=== PATIENT | female | born 1965 | race Caucasian/White ===

== ENCOUNTER 2025-02-26 11:25 | Day surgery (SDC) | payer MEDICARE, OTHER ==
[~2025-02-26] VITALS: Ht 167.6 cm; Wt 69.0 kg
[~2025-02-26 11:25] MED LIST: CEFDINIR300 MG PO; CEPHALEXIN500 MG PO; COUMADIN4 MG PO; ELIQUIS5 MG PO; HYDROmorphone HCL 1 MG/ML SYR IV PRN; HYOSCYAMINE SULFATE 0.375 MG TAB.ER.12H PO PRN; IBLOOD GLUCOSE TEST STRIP 1 EA TEST VI PRN; LACTATED RINGER'S 1,000 ML IV SCH; LIDOCAINE HCL 1% 5 ML SDV INJ ONE; MAPAP500 M1 PO; MORPHINE SULFATE 15 MG TABCR PO PRN; ONDANSETRON HCL4 MG PO; OXYBUTYNIN CHLOR5 MG PO; OXYCODONE HCL5 MG PO; OXYCODONE/APAP 5/325 TAB PO PRN; SENNA-DOCUSATE1 EAC1 PO; SEVOFLURANE 250 ML BTL INH ONE; TAMSULOSIN HCL0.4 MG PO; TRAMADOL HCL50 MG PO; mitoMYcin 40 MG/20 ML VIAL BLADIN SCH
[2025-02-26 11:40] VITALS: BP 115/79
[2025-02-26] MEDS ORDERED: CIPROFLOXACIN500 MG PO (11:44)
[2025-02-26] MEDS ORDERED: ASHWAGANDHA300 MG PO (11:49)
[2025-02-26] MEDS ORDERED: [UNRECOGNIZED DRUG - OTHER] PO (11:49)
[2025-02-26] MEDS ORDERED: MILK THISTLE175 M3 PO (11:50)
[2025-02-26] MEDS ORDERED: DEXAMETHASONE SOD PHOS 4 MG/ML VIAL ONE ×2 (12:57→20:57)
[2025-02-26] MEDS ORDERED: fentaNYL citrate 100 MCG/2 ML VIAL ONE ×3 (12:57→20:36)
[2025-02-26] MEDS ORDERED: ROCURONIUM BROMIDE 50 MG/5 ML SYR ONE ×2 (12:57→20:36)
[2025-02-26] MEDS ORDERED: LIDOCAINE HCL 2% 5 ML SDV ONE ×3 (12:57→20:36)
[2025-02-26] MEDS ORDERED: MAGNESIUM SULFATE 1 GM/2 ML VIAL ONE (13:24)
[2025-02-26] MEDS ORDERED: ACETAMINOPHEN 1,000 MG/100 ML VIAL ONE ×2 (13:24→21:03)
[2025-02-26] MEDS ORDERED: LABETALOL HCL 20 MG/4 ML VIAL ONE (13:43)
[2025-02-26] MEDS ORDERED: TRANEXAMIC ACID 1,000 MG/10 ML AMP ONE (15:19)
[2025-02-26] MEDS ORDERED: SUGAMMADEX SODIUM 200 MG/2 ML ML ONE (15:26)
[2025-02-26] MEDS ORDERED: NALOXONE HCL 0.4 MG SYR IV PRN ×2 (16:00→22:00)
[2025-02-26] MEDS ORDERED: IBLOOD GLUCOSE TEST STRIP 1 EA TEST VI PRN ×2 (16:00→22:00)
[2025-02-26] MEDS ORDERED: fentaNYL citrate 50 MCG/ML SDV IV PRN ×2 (16:00→22:00)
[2025-02-26 16:02] LABS: MCH 29.6 PG (25.6-32.2); MCHC 31.6 g/dL (32.2-35.5); MCV 93.7 fL (79.4-94.8); RBC 3.98 M/uL (3.93-5.22)
[2025-02-26] MEDS ORDERED: LACTATED RINGER'S 1,000 ML IV SCH (16:15)
--- NOTE | 2025-02-26 16:16 | NUR ---
02/26/25 1616 Ines Oconnor 1550- PT PRESENTS TO PACU, SEMI BOYER POSITION, NON REACTIVE TO STIMULUS. BREATHING EVEN AND NON LABORED, O2 AT 6L PER MASK. LR INFUSING TO RAC IV. CBI RUNNING AT THIS TIME, DRAINAGE BAG EMPTIED AND BAGS MARKED, RED COLOR IN BAG. 1555- PT MOVING EXTREMITIES BUT NOT RESPONSIVE TO VERBAL OR TACTILE STIMULUS. BLOOD DRAWN FROM RAC IV FOR HEMOGRAM. 1603- PT WAKES, REORIENTED TO TIME AND PLACE. MOVED TO ROOM AIR. 1607- NO PAIN OR NAUSEA, PT DOING PURSED LIP BREATHING. DENIES SOB.
[2025-02-26] MEDS ORDERED: fentaNYL citrate 50 MCG/ML SDV ONE (16:19)
--- NOTE | 2025-02-26 17:20 | NUR ---
Pt arrived to the room transferred here by INTERNATIONAL PROJECT MANAGER Leah at about 1708 hrs. Pt is A&O but drowsy. Family member in room. Pt is practicing deep breathing at this time. VSS. CBI running at a slow rate, urine is clear to light pink in color.
[2025-02-26 17:22] VITALS: BP 121/67
[2025-02-26 18:18] VITALS: BP 130/67
[2025-02-26 18:22] VITALS: BP 130/67
--- NOTE | 2025-02-26 18:26 | NUR ---
THIS RN REVIEWED CT RESULTS. VM LEFT FOR DR. ARRINGTON TO SEE IF SHE REVIEWED CT AND IF SHE HAD CONCERNS.
--- NOTE | 2025-02-26 18:35 | NUR ---
MD CALLED REGARDING CT RESULTS BY THIS RN. VM WAS LEFT NO ANSWER. MD CALLED BACK, WAS HAVING DISCUSSION WITH DR. PIERCE SO MISSED CALL. AT THIS TIME, DR. PIERCE WILL BE CONSULTING ON PATIENT THIS EVENING. CBI TO BE CLAMPED. CURRENTLY LIGHT PINK OUTPUT, KULKARNI DRAINED WITH 375ML OUTPUT, THE CBI BAG HAD 300ML OUT SINCE ARRIVING TO FLOOR. PT PAIN CURRENTLY 4/10, ABOMDEN DOES NOT APPEAR GROSSLY DISTENDED/NOR FIRM. PT MADE NPO STATUS AT THIS TIME. ALL PT CARE NEEDS MET, PRIMARY RN NOTIFIED.
--- NOTE | 2025-02-26 19:12 | NUR ---
Notified by BAKARI Herring, that the most recent CT scan of this pt reports a possible bladder perforation. She advised that she will contact Dr. Sanchez.
[2025-02-26 19:23] VITALS: BP 116/61
--- NOTE | 2025-02-26 19:40 | NUR ---
DR. PIERCE AT BEDSIDE WITH PATIENT.
--- NOTE | 2025-02-26 19:55 | NUR ---
PATIENT RESTING IN BED, SURGERY CONSENT SIGNED BY PATIENT, WITNESSED BY THIS RN. IVF CONTINUING TO INFUSE PER ORDER. RESPIRATIONS EVEN AND UNLABORED. PATIENT IS NPO.
[2025-02-26] MEDS ORDERED: TRANEXAMIC ACID 650 MG TABLET PO SCH (21:00)
[2025-02-26] MEDS ORDERED: PHENYLEPHRINE HCL IN 0.9% NACL 1 MG/10 ML SYR ONE (21:36)
--- NOTE | 2025-02-26 21:45 | NUR ---
CALL RECEIVED FROM MERARI IN LAB- PER MERARI, FINAL GRAM STAIN RESULTS W/ FEW WBC'S, NO ORGANISM SEEN. PRIMARY RN GLADIS MADE AWARE.
[2025-02-26] MEDS ORDERED: HYDROmorphone HCL 1 MG/ML SYR IV PRN (22:00)
[2025-02-26] MEDS ORDERED: Ropivacaine HCl 0.5% 30 ML VIAL ONE (22:48)
[2025-02-26] MEDS ORDERED: TRANEXAMIC ACID IN NACL,ISO-OS 1,000 MG/100 ML PIGGYBACK IV ONE (23:45)
--- NOTE | 2025-02-26 23:47 | NUR ---
02/26/25 2347 Liliana Mai 2314- PT ARRIVES TO PACU. ORAL AIRWAY IN PLACE. BREATHING IS EVEN AND UNLABORED. 6L OF O2 VIA MASK. SURGICAL SITE SHOWS A SMALL AMOUNT OF SHADOWING. LR INFUSING. URINE DRAINING IN THE KULKARNI. PT IS NONREACTIVE TO VARBAL AND TACTILE STIMULI. PT SHOWS NO APPARENT SIGNS OF DISTRESS. 2330-PT BEGINS SWALLOWING AND HER RIGHT ARM IS LIFTED OFF THE BED. PT IS REACTIVE TO VERBAL STIMULI BUT IS UNABLE TO FOLLOW DIRECTIONS. ORAL AIRWAY REMAINS IN PLACE. 2336- PT IS ABLE TO FOLLOW DIRECTIONS TO OPEN HER MOUTH. ORAL AIRWAY REMOVED AT THIS TIME. SATS REMAIN IN THE HIGH 90S. PT SHOWS SOME FACIAL GRIMACING. 2342- WHEN ASKED ABOUT PAIN PT REPORTS "A LITTLE" AND POINTS THE THE BOTTOM OF HER MIDLINE INCISION. PT ALSO REPORTS "A LITTLE" WHEN ASKED ABOUT NAUSEA. PT TURNS HER HEAD TO THE LEFT AND EASILY FALLS BACK TO SLEEP.
[2025-02-27] VITALS (15 sets, daily range): BP systolic 98–119; BP diastolic 51–72
--- NOTE | 2025-02-27 00:10 | NUR ---
PATIENT RECEIVED FROM PACU, REPORT RECEIVED FROM BAKARI VINES. VS OBTAINED, RECORDED. KULKARNI CATH IN PLACE, CHELY DRAIN IN PLACE. DRESSING C/D/I. SMALL DOT OF DRAINAGE PRESENT ON DRESSING. PATIENT REPORTS 6/10 PAIN THAT IS TOLERABLE AND IS DESCRIBED CRAMPING. PATIENT DAUGHTER IN THE ROOM. SHE IS ALERT AND ORIENTED X4, LAYING WITH EYES CLOSED, BUT SHE STATES SHE IS JUST TRYING TO RELAX. SHE FOLLOWS ALL COMMANDS. SHE DENIES FURTHER NEEDS, CALL LIGHT IN REACH
--- NOTE | 2025-02-27 00:58 | NUR ---
SCHEDULED MEDICATION GIVEN TO PATIENT ORDERED. PATIENT RESTING WITH EYES CLOSED BUT RESPONDS TO VERBAL CUES. SHE DENIES ANY NEEDS, DAUGHTER IN ROOM. CALL LIGHT IN REACH
--- NOTE | 2025-02-27 01:37 | NUR ---
PRN PAIN MEDICATION AND NAUSEA MEDICATION GIVEN PER REQUEST. PATIENT SETTLED IN BED, RESPIRATIONS EVEN AND UNLABORED. NO FURTHER NEEDS AT THIS TIME, CALL LIGHT IN REACH
--- NOTE | 2025-02-27 02:11 | NUR ---
PATIENT RESTING, RESPIRATIONS EVEN AND UNLABORED. VS OBTAINED AND RECORDED. SHE REPORTS THAT HER NAUSEA AND PAIN HAS IMPROVED AND SHE APPEARS MORE COMFORTABLE. NO FURTHER NEEDS, CALL LIGHT IN REACH
--- NOTE | 2025-02-27 02:29 | NUR ---
CONFIRMED WITH GALE IN IMAGING, ORDERED ABD X-RAY COMPLETED IN PACU. UNABLE TO SEE RESULTS ORDER PUT IN ROUTINE, PER GALE HE WILL TRY AND GET AN EARLIER READ ON IMAGING RESULTS. PRIMARY RN GLADIS UPDATED AND AWARE.
--- NOTE | 2025-02-27 03:12 | NUR ---
PATIENT RESTING WITH EYES CLOSED, RESPIRATIONS EVEN AND UNLABORED. VS OBTAINED AND RECORDED. NO NEEDS IDENTIFIED, CALL LIGHT IN REACH
[2025-02-27 05:39] LABS: GLOMERULAR FILTRATION RATE,EST 46.0 mL/min (>60); UREA NITROGEN 12.0 mg/dL (7-18)
[2025-02-27 05:42] LABS: BASOPHILS 0.1 % (0.1-1.2); EOSINOPHILS 0 % (0.7-5.8); LYMPHOCYTES 2.7 % (19.3-51.7); MCH 30.1 PG (25.6-32.2); MCHC 32.4 g/dL (32.2-35.5); MCV 93.0 fL (79.4-94.8); MONOCYTES 3.9 % (4.7-12.5); NEUTROPHILS 92.8 % (34.0-71.1); RBC 3.72 M/uL (3.93-5.22)
[2025-02-27] MEDS ORDERED: MEROPENEM 1,000 MG in DEXTROSE 5% 100 ML IV SCH (06:00)
--- NOTE | 2025-02-27 06:21 | NUR ---
PATIENT RESTING IN BED, ABD ASSESSED. NO NEW DRAINAGE ON ABD DRESSING. RESPIRATIONS EVEN AND UNLABORED. DENIES NAUSEA. SCHEDULED MEDICATION GIVEN PER ORDER. PATIENT DENIES ANY FURTHER NEEDS.
--- NOTE | 2025-02-27 07:06 | NUR ---
Pt report received from BAKARI Barnett and BAKARI Flor. Pt is resting supine in bed, eyes closed but awake, breathing is regular, even and non-labored. Side rails up x4, call light in reach. White board updated. Pt denies any needs at this time. Pt's daughter is asleep on the couch.
--- NOTE | 2025-02-27 08:17 | NUR ---
INTO SEE PATIENT. PERSONAL HEALTH INFORMATION REVIEWED. PATIENT LIVES ALONE IN [place] A HOUSE. 3 STEPS INTO THE HOME. DENIES DIFFCULTY PRIOR TO SURGERY DOING THEM. DENIES USING ANY DME. PATIENT DAUGHTER TO TAKE HER HOME AT TIME OF DISCHARGE HAVE HER STAY TO RECOVER. PATIENT DOES DRIVE AND HAS ANOTHER DAUGHTER THAT LIVES CLOSE TO HER. DENIES ANY DIFFCULTY DOING UTLITIES OR OBTAINING FOOD. NO QUESTIONS OR FUTHER CM NEEDS AT THIS TIME.
[2025-02-27] MEDS ORDERED: OXYBUTYNIN CHLOR5 M1 PO (08:21)
--- NOTE | 2025-02-27 08:59 | NUR ---
MED REC COMPLETE
--- NOTE | 2025-02-27 09:37 | NUR ---
SPOKE WITH DR. ARRINGTON TO CLARIFY ADMISSION ORDERS. VORB DR. ARRINGTON/Niko VALDIVIA RN TO KEEP PATIENT EXTENDED RECOVERY AT THIS TIME. ORDER UPDATED.
[2025-02-27] MEDS ORDERED: LACTATED RINGER'S 1,000 ML IV SCH (10:30)
[2025-02-27] MEDS ORDERED: ENOXAPARIN SODIUM 30 MG/0.3 ML SYR SUB-Q SCH (10:31)
--- NOTE | 2025-02-27 10:43 | NUR ---
PATIENT IN BED AT THIS TIME. PROTECTION MANAGER CHARTED VITALS AND I&O'S. CALL LIGHT WITHIN REACH, NO FURTHER NEEDS AT THIS TIME.
--- NOTE | 2025-02-27 11:22 | NUR ---
PT NOT AVAILABLE FOR VISIT. PROVIDED PRAYER.
--- NOTE | 2025-02-27 11:30 | NUR ---
UR CLINICAL REVIEW: 2MN VERSALUS, MEETS EXTENDED RECOVERY TURBT AND STENT PLACEMENT, BLADDER PERFORATION, NEED FOR CONTINUED MONITORING. KULKARNI IN PLACE ADVANCING DIET, IV ANTIBIOTICS, IV ANALGESICS MEDICARE EXTENDED RECOVERY 02/26/2025 @ 0744 ORDER MATCHES REG NO AUTH REQUIRED PER MEDICARE RULES PLAN TO DC TO HOME WHEN MEDICALLY READY.
--- NOTE | 2025-02-27 11:39 | NUR ---
In with pt for med administration per emar. Pt rates her pain a 5 out of 10 until she got up to the chair, which increased her pain. She now rates it a 7 or 8 out of 10 in her "bladder". SBA as pt slowly transferred herself with minimal contact assist from bed to chair, BLE elevated, warm blanket provided. CPOX on, call light in reach, IVF running at newly ordered rate of 100ml/hr. Pt transferred without any incidents or events.
--- NOTE | 2025-02-27 14:41 | NUR ---
PATIENT IS IN HER CHAIR AT THIS TIME, CRIB TENDER CHARTED VITALS AND I&O'S, EMPTIED CATH BAG, CHECK CHELY DRAIN, CHANGED LINENS, GOT VITALS AND I&O'S, CALL LIGHT WITH IN REACH AND NOTHING ELSE NEEDED AT THIS TIME.
--- NOTE | 2025-02-27 15:08 | NUR ---
In with pt for hourly rounding. Pt is resting in chair, reclined, BLE elevated, IVF running. Her eyes are closed, breathing is regular, even, and non-labored. Call light is in reach.
--- NOTE | 2025-02-27 16:21 | NUR ---
Pt has been up in the chair, reclined, since before lunch. Aides Peyton and Rachel are in with pt, now, to have her attempt to ambulate about the room. The pt reports quite a bit of pain with any movement at all, but she breathes deeply through it and is not unwilling to try.
--- NOTE | 2025-02-27 18:26 | NUR ---
PATIENT WAS IN HER CHAIR AT THIS TIME, CAMILA TERRY AND SACHIN ASSISTED PATIENT WITH A SMALL WALK AROUND THE ROOM WITH A FWW, WE GOT HER BACK TO BED. NOTHING ELSE NEEDED AT THIS TIME, CALL LIGHT WITH IN REACH.
--- NOTE | 2025-02-27 20:28 | NUR ---
Pt in bed, knees drawn up to chest. c/o abd/bladder spasms pain, medicated with Dilaudid 0.5mg IV. on room air, post op CPOX at bedside. f/c in place draining orange dark yellow urine. Armando tube patent. scds in place. Visiting with family.
--- NOTE | 2025-02-27 20:53 | NUR ---
ROTARY RIG ENGINE OPERATOR ASSISTED PT WITH WALKING IN HALLWAY. PT APPEARED TO BE STEADY AND SELF AWAY ABOUT HER PACE AND BREATHING. PT WENT FROM 116 TO THE AROUND THE FIRST CORNER NEAR CCU AND BACK TO BED. PT STATED THAT SHE FELT LIKE SHE WAS DOING MUCH BETTER THAN THE LAST ATTEMPT.
[2025-02-28] VITALS (13 sets, daily range): BP systolic 97–106; BP diastolic 49–60
--- NOTE | 2025-02-28 00:05 | NUR ---
RESTING, AWAKES EASILY. C/O BLADDER PAIN, WILL MEDICATE. F/C PATENT. IVF INFUSING W/O PROBLEMS, LAINE TUBE PATENT DRAINING SS DRAINAGE. SCDS IN PLACE
--- NOTE | 2025-02-28 02:04 | NUR ---
awake, ivf and abx infusing w/o problems. on room air, post op cpox on at bedside, cooperative with vitals and assessment. dressing low midline abd with old drainage, and tender. f/c patent draining orange dark yellow urine. scds in place. c/o abd pain/bladder spasms, medicated with norco 1 tab. Repositions crackers given earlier, tolerated well, diet will be updated to regular for breakfast. no c/o n/v, has tolerated very wellself in bed.
--- NOTE | 2025-02-28 03:32 | NUR ---
resting, eyes closed, no s/sx distress, on room air, post op CPOX in place, f/c patent, IVF infusing w/o problems
[2025-02-28 05:44] LABS: BASOPHILS 0.2 % (0.1-1.2); EOSINOPHILS 0.4 % (0.7-5.8); LYMPHOCYTES 11.9 % (19.3-51.7); MCH 30.2 PG (25.6-32.2); MCHC 32.1 g/dL (32.2-35.5); MCV 94.1 fL (79.4-94.8); MONOCYTES 5.7 % (4.7-12.5); NEUTROPHILS 81.3 % (34.0-71.1); RBC 3.24 M/uL (3.93-5.22)
--- NOTE | 2025-02-28 05:46 | NUR ---
MONOLOGIST OBTAINED VITALS AND I&O. PT STATES NO NEEDS AT THIS TIME. CALL LIGHT WITHIN REACH.
[2025-02-28 05:54] LABS: GLOMERULAR FILTRATION RATE,EST 60.0 mL/min (>60); UREA NITROGEN 14.0 mg/dL (7-18)
--- NOTE | 2025-02-28 06:07 | NUR ---
Awake, c/o abd bladder spasms/pain, medicated with Dilaudid 0.5mg IV. on room air, cpox on at bedside, shital tube with ss drainage. f/c urine medium yellow colored. abd dressing no changes abd tender. IVF infusing w/o problems
--- NOTE | 2025-02-28 06:59 | NUR ---
Pt report received from BAKARI Payton. Pt is resting supine in bed, eyes closed, breathing is regular, even, and non-labored. Side rails up x4, call light in reach.
[2025-02-28] MEDS ORDERED: ENOXAPARIN SODIUM 40 MG/0.4 ML SYR SUB-Q SCH (09:00)
--- NOTE | 2025-02-28 11:05 | NUR ---
Dr. Sanchez in to see pt. Pt requested prune juice in lieu of a stool softener because, she states, this works better. This was provided to her. Pt was also provided with a 60g consistent carb and vegetarian menu to make food choices from. Dr. Sanchez advised her that her diet is not limited; however, the pt would like to make choices without carbs and sugar as her own personal preference. Requested Aid Mariza ramires pt to ambulate the hallway shortly.
--- NOTE | 2025-02-28 12:00 | NUR ---
PATIENT AND I WALKED TWO LAPS AROUND MED SURG. PATIENT SITTING UP IN HER CHAIR EATING SOME LUNCH.
--- NOTE | 2025-02-28 12:15 | NUR ---
Pt is up ambulating the hallway using fww with aide Rachel. Pt is tolerating ambulation well.
--- NOTE | 2025-02-28 15:49 | NUR ---
Patient sitting up in chair, alert and oriented x3. Patient reports 7/10 bladder pain. Admin one tab percocet 5/325mg po at this time.
--- NOTE | 2025-02-28 20:54 | NUR ---
Pt awake, no c/o pain or n/v at this time. On room air, CPOX on at bedside, sats 97%. Cooperative with vitals and assessments. Lungs clear bilat, no c/o cough or SOB. Abd soft, RAÚL, no bm since prior to admit, declines need for bowel care at this time but stated that if her Dr agrees she will take them. Will notify Dr Sanchez in am. R low abd dressing with a very scant amount of drainage at base. intact. tender abd. Armando tube with small amount of ss drainage. dressing with small amount of drainage at insertion site. F/c patent draining large amounts of medium colored urine. care done, cooperative. IVF infusing R arm, Denies need for pain meds at this time, tolerating diet well.
--- NOTE | 2025-02-28 22:12 | NUR ---
Awake, c/o 9/10 bladder spasms pain, medicated with 1 norco. IVF and abx infusing w/o problems. shital tube, f/c patent.
--- NOTE | 2025-02-28 23:19 | NUR ---
RESTING, ON ROOM AIR, CPOX IN PLACE. F/C PATENT, IVF INFUSING W/O PROBLEMS NO S/SX DISTRESS AT THIS TIME, SCDS IN PLACE, LE ELEVATED
--- NOTE | 2025-03-01 00:56 | NUR ---
RESTING, ON ROOM AIR, EYES CLOSED, CPOX ON AT BEDSIDE, F/C PATENT, IVF INFUSING W/O PROBLEMS
--- NOTE | 2025-03-01 03:10 | NUR ---
resting, eyes closed, on room air, CPOX on at bedside, f/c patent, IVF infusing w/o problems, SCDs in place, repositions self in bed
[2025-03-01 05:22] VITALS: BP 107/62
[2025-03-01 05:26] LABS: BASOPHILS 0.4 % (0.1-1.2); EOSINOPHILS 1.6 % (0.7-5.8); LYMPHOCYTES 17.7 % (19.3-51.7); MCH 30.3 PG (25.6-32.2); MCHC 31.9 g/dL (32.2-35.5); MCV 95.0 fL (79.4-94.8); MONOCYTES 6.6 % (4.7-12.5); NEUTROPHILS 73.3 % (34.0-71.1); RBC 3.63 M/uL (3.93-5.22)
--- NOTE | 2025-03-01 05:29 | NUR ---
PATIENT USED CALL LIGHT AND CAMILA MEZA RESPONDED. PATIENT THOUGHT SHE NEEDED TO USE BATHROOM SO I GOT HER TO THE TOILET. SHE WANTED TO SIT AND WAIT SO I CAME BACK TO CHECK ON HER AFTER A FEW MINUTES. PATIENT WAS UNSUCCESSFUL IN ANY FORM OF BM. PATIENT WAS PUT BACK IN TO BED. URINARY DRAINAGE BAG WAS EMPTIED AND VITAL SIGNS WERE TAKEN. PATIENT COMPLAINS OF PAIN, CAMILA MEZA IS GOING TO INFORM RN DORINDA. CALL LIGHT WITHIN REACH.
[2025-03-01 05:39] LABS: GLOMERULAR FILTRATION RATE,EST 60.0 mL/min (>60); UREA NITROGEN 15.0 mg/dL (7-18)
[2025-03-01 05:50] VITALS: BP 107/62
--- NOTE | 2025-03-01 06:02 | NUR ---
Walked to BRp earlier, voided, tolerated well, back to bed. c/o abd bladder spasms, medicated with Nerinx 1 tab. On room air. abd dressing no changes. Armando tube with ss drainage. scds in place. IVF infusing w/o problems. CPOX on at bedside, sats WNL
--- NOTE | 2025-03-01 07:10 | NUR ---
Pt report received from BAKARI Payton. Pt is resting supine in bed, A&O, denies any needs at this time. Assessment completed. White board updated. Side rails up, personal belongings, call light, and bedside table in reach. IVF running at ordered rates.
[2025-03-01 09:51] VITALS: BP 95/53
--- NOTE | 2025-03-01 09:55 | NUR ---
pt just had rn in room, rn got pt fresh ice water and heat pack. THIS ENVIRONMENTAL ISSUES INSTRUCTOR CLEANED UP ROOM, EMPTIED TRASH AND EMPTIED KULKARNI. CALL LIGHT WITHIN REACH OF PT. ONE VISITOR IN ROOM. PT REPORTED NEEDING NOTHING MORE AT THIS TIME.
[2025-03-01] MEDS ORDERED: OXYCODONE/APAP 5/325 TAB PO PRN (11:30)
[2025-03-01] MEDS ORDERED: HYDROmorphone HCL 1 MG/ML SYR IV PRN (11:30)
--- NOTE | 2025-03-01 13:00 | NUR ---
Pt is up ambulating the hallway with Aidscarlett Hernandez (3 laps). She tolerated it well.
--- NOTE | 2025-03-01 14:11 | NUR ---
PT AMBULATED THREE LAPS AROUND THE MED SURGE FLOOR. LINEN CHANGE. GOT PT FRESH ICE WATER AND THREE WARM BLANKETS TO WRAP AROUND HER IN THE CHAIR. CALL LIGHT WITHIN REACH, AND VISITOR IN THE ROOM.
--- NOTE | 2025-03-01 17:23 | NUR ---
PT AMBULATED TWO LAPS AROUND MED SURG FLOOR, THEN THIS PERSONAL COMPANION GAVE PT BED BATH. GOT PT WARM PACK AND TWO WARM BLANKETS TO FOLLOW BED BATH. PT HAS FRESH ICE WATER AND IS FINISHING TEA FROM DINNER. REPORTED A PAIN LLEVEL OF 7-8 TO RN. CALL LIGHT WITHIN REACH.
--- NOTE | 2025-03-01 18:30 | NUR ---
While in with pt for pain med administration for 8 out of 10 pain, I noted that the documentation of omer output on the board was 100ml. This was a significant change from 1050 1000 hours and 1000 around 1400 hours. Reassessed the pt's abdomen (I had just changed the Armando drain dressing at the pt's request) and noted tenderness to the lower pelvic area. Flushed the omer tubing (after cleansing the port with alcohol and kinking the tubing) and immediately obtained urine flow into the tubing. After about 1000ml of urine emptying, the pt expressed relief of her pain. The bladder was emptied of 1350ml clear yellow urine. There was not an increase in Armando drainage. PC to Dr. Sanchez to update her on this incident. She advised no updated orders, and just to keep a close eye on this issue and make sure the urine is draining appropriately, often.
--- NOTE | 2025-03-01 19:20 | NUR ---
Awake, room air, watching tv, SCDS off at this time, IVF infusing w/o problems, f/c patent. Denies c/o pain at this time.
[2025-03-01 21:46] VITALS: BP 98/54
[2025-03-01 21:47] VITALS: BP 98/54
[2025-03-02] VITALS (10 sets, daily range): BP systolic 108–127; BP diastolic 60–66
--- NOTE | 2025-03-02 01:05 | NUR ---
Resting, eyes closed, no s/x distress, cpox on at bedside. IVF infusing w/o problems. f/c patent. scds off her request
--- NOTE | 2025-03-02 02:54 | NUR ---
RESTING, EYES CLOSED, NO S/SX DISTRESS, IVF INFUSING W/O PROBLEMS. F/C PATENT,
--- NOTE | 2025-03-02 04:27 | NUR ---
c/o 12/18 bladder spasms pain, Medicated with 1 norco, f/c patent, draining yellow colored urine
[2025-03-02 05:31] LABS: BASOPHILS 0.4 % (0.1-1.2); EOSINOPHILS 2.9 % (0.7-5.8); LYMPHOCYTES 12.8 % (19.3-51.7); MCH 29.8 PG (25.6-32.2); MCHC 32.1 g/dL (32.2-35.5); MCV 92.9 fL (79.4-94.8); MONOCYTES 8.4 % (4.7-12.5); NEUTROPHILS 75.4 % (34.0-71.1); RBC 3.25 M/uL (3.93-5.22)
[2025-03-02 05:48] LABS: GLOMERULAR FILTRATION RATE,EST 81.0 mL/min (>60); UREA NITROGEN 11.0 mg/dL (7-18)
--- NOTE | 2025-03-02 06:08 | NUR ---
No further c/o pain, repositions self in bed. CHELY patent w ss drainage total of 15cc this shift. F/c patent, draining QS urine. care done. abd soft, tender was medicated earlier with [place], effective. IVF and IV abx infusing w/o problems. alet and oriented
--- NOTE | 2025-03-02 06:59 | NUR ---
Pt report received from RN Amanda Payton. Spoke with Dr. Sanchez as well. 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 She gave a verbal order to somewhat aggressively flush the bladder with 120-200ml NS a few times today to attempt to flush the particles out so the pt does not have issues once she is discharged.
--- NOTE | 2025-03-02 12:45 | NUR ---
In with pt in response to call light. Provided the pt with fresh iced water and assisted her to a standing position using FWW (SBA only with L&TM) to prepare to ambulate the hallway. CAMILA Bustos walked with pt while I completed a linen change and set up the chair for the pt to return to. Pt tolerated 4 laps well. Pain is controlled. Kelsey is draining appropriately at this time. Call light in reach.
--- NOTE | 2025-03-02 12:56 | NUR ---
PATIENT AMBULATED HALLWAYS WITH FWW AND SBA WITH THIS INTERACTIVE MEDIA DIRECTOR 4X. TOLERATED AMBULATION WELL. BED LINENS WERE CHANGED BY BAKARI DAVIDSON. PATIENT IS CURRENTLY SITTING IN THEIR RECLINER. FRESH ICE WATER AND A WARM BLANKET WERE PROVIDED. CALL LIGHT AND PERSONAL ITEMS ARE WITHIN REACH.
--- NOTE | 2025-03-02 15:09 | NUR ---
SBA TO THE BATHROOM WITH FWW. PATIENT AMBULATED HALLWAYS TWICE WITH FWW AND SBA BY THIS SENIOR UI DESIGNER. PATIENT RETURNED TO SIT IN THEIR RECLINER. FRESH ICE WATER WAS PROVIDED.
--- NOTE | 2025-03-02 16:48 | NUR ---
In with pt for drain sponge change, and for gentle irrigation of the bladder through the omer. Noted that urine is slightly more concentrated in color than it was this morning. Pt reports pain is 7 out of 10 in the form of bladder spasms. Pt medicated per emar with 15mg MS contin. Drain is leaking light yellow colored fluid from around the insertion site. Pt has ambulated the hallways 2 times, 4 laps each time. She is about to ambulate for the 3rd time this shift after I complete the dressing change and irrigation.
--- NOTE | 2025-03-02 18:24 | NUR ---
Advised by CAMILA Espinosa that the pt's omer output for the last 4 hours is 750. AT 1400 hours it was 700. So, in the last 8 hours there has been 1450 U/O. I will change the drainage bag now to see if this helps with the vaporlock issues.
--- NOTE | 2025-03-02 18:52 | NUR ---
Pt has a new gravity bag connected to the omer that seems to be draining more appropriately.
--- NOTE | 2025-03-02 19:15 | NUR ---
REPORT RECEIVED FROM LETY VILLEGAS. pt RESTING IN THE BED. BOARD UPDATED. pt DENIES ANY OTHER NEEDS AT THIS TIME. CALL LIGHT WITHIN REACH.
--- NOTE | 2025-03-02 21:15 | NUR ---
V/S AND I&O'S COMPLETED. KULKARNI CARE DONE.
--- NOTE | 2025-03-02 21:29 | NUR ---
PT REPORTS BLADDER SPASM TO PRIMARY RN. PRN ADMINISTERED, SEE EMAR. PT DENIES FURTHER NEEDS. STATES SHE IS "READY TO GO TO SLEEP." LIGHTS TURNED OUT. CALL LIGHT AND PERSONAL ITEMS IN REACH.
--- NOTE | 2025-03-02 21:30 | NUR ---
pt RESTING IN THE BED. ASSESSMENT AND VITAL SIGNS DONE. KULKARNI CARE DONE. CHELY DRAIN DRESSING CDI. MIDLINE STERI-STRIPS CDI. KULKARNI FLUSHED WITH 100mL OF STERILE WATER. pt C/O 12/18 PAIN. PRN PAIN MEDS ADMINISTERED. pt DENIES ANY OTHER NEEDS AT THIS TIME. CALL LIGHT WITHIN REACH.
--- NOTE | 2025-03-02 23:10 | NUR ---
pt RESTING IN THE BED. pt DENIES ANY NEEDS AT THIS TIME. CALL LIGHT WITHIN REACH.
--- NOTE | 2025-03-03 01:31 | NUR ---
pt RESTING IN THE BED. pt DENIES ANY NEEDS AT THIS TIME. CALL LIGHT WITHIN REACH.
--- NOTE | 2025-03-03 03:05 | NUR ---
pt RESTING IN THE BED. NO OTHER NEEDS AT THIS TIME. CALL LIGHT WITHIN REACH.
--- NOTE | 2025-03-03 04:56 | NUR ---
pt RESTING IN THE BED WITH EYES CLOSED. RR EVEN AND UNLABORED. CALL LIGHT WITHIN REACH.
[2025-03-03 05:42] VITALS: BP 108/56
[2025-03-03 05:47] VITALS: BP 108/56
--- NOTE | 2025-03-03 05:50 | NUR ---
IN RM TO DO VITAL SIGNS. ASSESSMENT WAS DONE. DRESSING CDI. WATER REFRESHED. pt DENIES ANY OTHER NEEDS AT THIS TIME. CALL LIGHT WITHIN REACH. KULKARNI EMPTIED AND FLOWING. NO NEED TO FLUSH THROUGH OUT THE NIGHT.
--- NOTE | 2025-03-03 07:48 | NUR ---
REPORT RECEIVED FROM LIZETH VILLEGAS.
--- NOTE | 2025-03-03 08:05 | NUR ---
DR ARRINGTON IN TO SEE PT AND DISCUSS POC. DR ARRINGTON INSTRUCTED STAFF TO MAKE SURE THAT PT IS EDUCATED REGARDING CHELY AND KULKARNI CARE. PT STATED SHE HAS BEEN EDUCATED AND FEELS COMFORTABLE WITH BOTH AT THIS TIME. CALL LIGHT WITHIN REACH. PT IS NOW EATING BREAKFAST.
[2025-03-03] MEDS ORDERED: MACROBID 100 M100 MG PO (08:21)
[2025-03-03] MEDS ORDERED: OXYCODONE HCL5 M3 PO (08:22)
[2025-03-03 09:37] VITALS: BP 123/80
--- NOTE | 2025-03-03 09:38 | NUR ---
PT CRYING IN BED, THE BLOOD THINNER SHOT HURT AND I THINK SHE JUST WANTED TO GO HOME. WE TALKED FOR A WHILE AND I MADE SURE SHE WAS NOT CRYING WHEN I LEFT THE ROOM. GOT PT FRESH ICE WATER AND CALL LIGHT AND CELL PHONE NEXT TO BED FOR PT TO ACCESS. PT LEAVING THIS MORNING WHEN DAUGHTER ARRIVES.
--- NOTE | 2025-03-03 09:50 | NUR ---
ALERT AND ORIENTED IN BED. DENIES ANY CM NEEDS. PLANS TO DC TO HOME.
--- NOTE | 2025-03-03 11:27 | NUR ---
PT NOT AVAILABLE FOR VISIT. PROVIDED PRAYER.
[2025-03-03 11:45] VITALS: BP 116/66
--- NOTE | 2025-03-03 11:45 | NUR ---
PT ASSESSMENT DONE AT 0940, THIS RN FORGOT TO CHANGE THE DOCUMENTATION TIME.
--- NOTE | 2025-03-03 11:51 | NUR ---
PT DC'D HOME WITH DAUGHTER. AGAIN THIS RN OFFERED TO DEMONSTRATE/TEACH PT HOW TO EMPTY CHELY DRAIN AND IRRIGATE AND EMPTY KULKARNI CATHETER. PT REFUSED, STATES SHE ALREADY KNOWS FROM PREVIOUS EXPERIENCE AND WATCHING NURSES DO IT THIS HOSPITALIZATION. WRITTEN AND VERBAL EDUCATION GIVEN TO PT AND HER DAUGHTER. SUPPLIES SENT HOME WITH PT DR ARRINGTON REQUESTED. PT HAS NO OTHER QUESTIONS AT THIS TIME.
--- NOTE | 2025-03-03 12:14 | NUR ---
LAST VITAL SIGNS, PT DC'ED. PT PLACED IN WHEELCHAIR AND WALKED OUTSIDE AND HELPED INTO THE CAR TO BE DRIVEN HOME WITH HER DAUGHTER. PT REPORTED NO DIZZINESS FROM SITTING IN WHEELCHAIR.
--- NOTE | 2025-03-08 13:51 | OR ---
[facility] [address], [place] [address] Signed DATE OF OPERATION: 02/26/2025 SURGEON: Joie Pierce MD PREOPERATIVE DIAGNOSIS: Perforated bladder status post transurethral bladder tumor resection for bladder cancer (extensive) POSTOPERATIVE DIAGNOSES: 1. Perforated bladder status post transurethral bladder tumor resection for bladder cancer (extensive). 2. Anterior bladder neck extensive perforation with tissue defect. 3. Intraabdominal fluid (turbid) uncertain but related to perforation. 4. Portions of residual bladder, bladder neck, and elsewhere. PROCEDURES PERFORMED: 1. Exam under anesthesia with low midline incision. 2. Repair of bladder neck and bladder defect ( large, greater than 4cm) 3. Placement of left ureteral 24 x 6 stent. 4. Excision of portion of bladder with associated tumor. 5. Omental pedicle graft to bladder repair site and space of Retzius, concurrent placement of 7 mm flat armando drain. EQUIPMENT OPERATOR INTERMODAL YARD: Daniel. ANESTHESIA: General endotracheal, Owen Delaney CRNA and postoperative abdominal TAP blocks. INDICATIONS: This 59-year-old white woman is from [place], [place], and a patient of Dr. Angie Arrington. She is noted to have an extensive and fungating bladder tumor for which she underwent transurethral resection of extensive tumor today. She is known to have occlusion of the right ureteral orifice from tumor and nonfunction of the right kidney with chronic hydronephrosis but normal function of the left kidney without hydronephrosis. Extensive trans urethral resection of bladder tumor was undertaken by Dr. Arrington, but during the course of the procedure, some perivesical fat was identified highly suggestive of perforation. On that basis, the procedure was abbreviated and evaluation undertaken including a CT scan of the abdomen and pelvis. This did affirm intraperitoneal fluid which was relatively extensive and Electronically Signed By: JOIE PIERCE MD 03/08/25 1351 PATIENT NAME: ERIC BILLS OPERATIVE REPORT DATE OF : 61 REPORT #: [id number] PHYSICIAN: JOIE PIERCE MD PCP: FARIHA CANO MD REPORT IS CONFIDENTIAL AND NOT TO BE RELEASED WITHOUT AUTHORIZATION [facility] [address], [place] [address] Signed over the liver itself as well as inflammatory and edematous changes of the bladder in the bladder neck, particularly to the right side. Consultation was requested by Dr. Arrington for management of this problem. The patient shows no sign of systemic sepsis, only mild discomfort and she has been given ceftriaxone antibiotic. A three way bladder irrigation catheter is in and only minimal infusion of the catheter has been undertaken since resection so as to avoid clots and so on. My review of her clinical and radiographic situation culminated in recommendation for laparotomy and repair of the bladder defect wherever it might be. Of note, the patient does have a neurogenic bladder and does self catheterization on a routine basis. On that basis, her bladder is flaccid and probably larger and thinner than usual. FINDINGS: Indeed the bladder was floppy and somewhat larger than usual and careful extraperitoneal (properitoneal) dissection of the anterior aspect of the bladder was undertaken. The dome did not have the defect or other problem. Indeed, the defect was found in the space of Retzius at the bladder neck anteriorly. The three way Kelsey catheter was certainly well identified. There was a milky turbid fluid within the peritoneal cavity, which was suctioned free. There was no sign of rectal injury or enteric injury. All of the problem was anterior in the low bladder segment in the anterior bladder neck. Repair consisted of closure of the mucosal defect in the lower bladder segment ultimately with application of an omental pedicle graft and closure of at least two layers of the upper portion of the lower bladder segment. A double-J stent was placed in the ureteral orifice on the left, which showed good urine flow and which protected the urinary orifice from occlusion and closure of the mucosa. There were some segments of bladder tumor along the edge of the defect which were excised as well so as to provide more reliable healing of the bladder mucosa. She tolerated the procedure well. DESCRIPTION OF PROCEDURE: The patient was brought to the operating room, given a general endotracheal anesthetic. Preoperative antibiotic ceftriaxone was in place. A Kelsey catheter was in place already also. The abdomen was prepared with chlorhexidine solution after clipping and draped sterilely. An incision was made inferior to the umbilicus extending toward the symphysis pubis. Meticulous care was taken in entering the abdomen, so as to maintain the extraperitoneal position for the bladder. Upon entering the superior aspect of the incision, a milky turbid fluid from the abdominal cavity was encountered. This was suctioned free and sent for Gram stain and cultures. It ultimately showed only white cells and no bacteria. Electronically Signed By: JOIE PIERCE MD 03/08/25 1351 PATIENT NAME: ERIC BILLS OPERATIVE REPORT DATE OF : 61 REPORT #: [id number] PHYSICIAN: JOIE PIERCE MD PCP: FARIHA CANO MD REPORT IS CONFIDENTIAL AND NOT TO BE RELEASED WITHOUT AUTHORIZATION [address] [address] Signed With meticulous care, the bladder and its dome were from the anterior abdominal wall. Bowel loops and intraabdominal viscera were elevated cephalad and packed off with laparotomy packs allowing for intraabdominal and pelvic examination. The uterus and tubes were in place and there appeared to be no sign of rectal defect or other similar problem. There was bogginess and extraperitoneal fluid in the lateral horn of the bladder on the right side. The bladder was then freed in its properitoneal position anteriorly and inferiorly ultimately extending to the symphysis pubis. In this area was the most edematous tissue and thought likely to be the area of perforation rather than the dome of the bladder as was initially thought. Upon entering into the space of Retzius, copious amounts of fluid was noted and sizable defect of the lower bladder segment and bladder neck encountered. A Kelsey catheter within the bladder itself was well visualized. Mucosa that was visualized looked relatively normal. Ureteral orifice on the left was identified and not far from the actual defect within the bladder, but clearly functioning, egressing urine on an episodic basis. The incision was extended to the inferior-most portion to the symphysis pubis and the lateral wall was identified and quite markedly edematous and inflamed. There appeared to be some extra cystic firm tissue suggestive of neoplasm. This was excised as appropriate, so as to allow for clean closure of the bladder defect. The balloon catheter that was in the bladder was decompressed a bit to allow for grasping of the bladder mucosa inferiorly and laterally. A 2-0 PDS suture was used to reapproximate the bladder mucosal defect, extending from inferior to superior. Unfortunately an errant passage of the needle decompressed the balloon even though it had been partially decompressed already. On that basis, the balloon catheter was replaced and reinsufflated with 5 mL of saline alone. Progressive closure of the bladder defect was undertaken. The left ureteral orifice was near the edge of the bladder defect and on that basis a double-J 24 x 6 stent was passed over a ureteral wire without problem providing for protection of the ureteral orifice with the stent. The mucosa defect was then closed more fully with a running 2-0 PDS suture. The muscular layers superiorly were reapproximated with interrupted 2-0 PDS however the lower bladder segment and bladder neck had no such tissue to allow for reapproximation. Irrigation was undertaken in this area. Bleeding vessels secured with sutures or clips as necessary. The bladder repair was then tested with insufflation with the Kelsey catheter and irrigation port with 50 mL of saline, which showed no sign of leakage. It was deemed advisable to provide for additional support to the repair. A well Electronically Signed By: JOIE PIERCE MD 03/08/25 1351 PATIENT NAME: ERIC BILLS OPERATIVE REPORT DATE OF : 61 REPORT #: [id number] PHYSICIAN: JOIE PIERCE MD PCP: FARIHA CANO MD REPORT IS CONFIDENTIAL AND NOT TO BE RELEASED WITHOUT AUTHORIZATION [address] [address] Signed vascularized omental pedicle graft was then fashioned from the right side of the omentum. The omentum was grasped from the upper abdomen and freed on the right side of the right transverse colon providing a generous viable omental pedicle graft. This was then drawn down to the pelvis and secured with several interrupted 2-0 silk sutures. Sincere hemostatic agent was placed in the space of Retzius. An anterior left lower quadrant stab incision allowe the passage of a 7mm Armando drain to be placed anteriorly along the bladder repair area. It appeared to be watertight anyway of course. Irrigation was undertaken within the remaining abdominal cavity and excess irrigation fluid was suctioned free. Fascial Closure was undertaken with a running #1 PDS suture The subcutaneous tissue was irrigated and skin closed with running subcuticular 3-0 Vicryl. Steri-Strips were applied as was an ACTICOAT dressing. The patient then underwent bilateral TAP block for postoperative analgesic benefit. Blood loss was estimated at less than 50 mL in aggregate. Sponge, needle, and instrument counts reported as correct x3. Joie Pierce MD /RALEIGHL /[id number] cc: MD Dr. Fariha Murphy Copies: ANGIE ARRINGTON MD ~ Electronically Signed By: JOIE PIERCE MD 03/08/25 1351 PATIENT NAME: ERIC BILLS OPERATIVE REPORT DATE OF : 61 REPORT #: [id number] PHYSICIAN: JOIE PIERCE MD PCP: FARIHA CANO MD REPORT IS CONFIDENTIAL AND NOT TO BE RELEASED WITHOUT AUTHORIZATION
--- NOTE | 2025-03-08 13:51 | CONS ---
[facility] [address] [place], [place] [address] Signed DATE OF CONSULTATION: 02/26/2025 TIME: 7:50 p.m. REQUESTING PHYSICIAN: Dr. Arrington. PROBLEM: Bladder perforation, seeking consultation. HISTORY OF PRESENT ILLNESS: This is a 59-year-old white woman who is from [place], [place]. Her daughter Yenni Gibson ([phone]) lives in [place], who has accompanied her. I was called by Dr. Arrington, though I am not guest relations receptionist today, to assist in evaluation and treatment of recent bladder perforation. The patient underwent a transurethral resection of bladder tumor, which was said to be rather extensive and located on the right side of the bladder extending to the dome of the bladder. Right hydroureteronephrosis was also noted and the process was identified by gross hematuria. Dr. Arrington today performed diagnostic cystoscopy and transurethral resection of the bladder tumor, which was large and complicated with greater than 2 hours of resection time. The irrigation fluid for the TURBT was saline rather than glycerin, of course. The patient had presented to [facility] on February 16, 2025 with complaints of difficulty with self catheterization and gross hematuria. Bladder was irrigated, multiple large clots were removed and a CT scan of the abdomen and pelvis revealed the presence of an obvious bladder mass with associated right hydronephrosis indicating muscle invasive bladder cancer. She had no solid-appearing renal lesions on CT scan of the abdomen, but definite intrarenal calculi and a left kidney with cortical scarring. Severe right kidney atrophy with moderately severe hydronephrosis was noted. Cystoscopy did show an 8 cm infiltrative mass involving the right ureteral orifice, all of the right trigone, the right lateral wall of the bladder, the anterior dome of the bladder, and circumferential bladder neck. The left ureteral orifice was in normal anatomic position effluxing normal urine. The bladder tumor was resected using a 24-Thai bipolar loop in a routine fashion. The tumor overlying the right ureteral orifice resected 1st showing good clearance of the area. The anterior dome of the bladder was resected as well and towards the end of the procedure the area did get hydrodissection by inflow of irrigation, perivesical fat was then identified. The procedure was terminated with a concern of a possible perforation. A 24-Thai three-way Kelsey catheter was inserted. The balloon was filled with 25 mL of sterile Electronically Signed By: JOIE PIRECE MD 03/08/25 1351 PATIENT NAME: ERIC BILLS CONSULTATION DATE OF : 61 REPORT #: [id number] PHYSICIAN: JOIE PIERCE MD PCP: PHILIP CANO MD REPORT IS CONFIDENTIAL AND NOT TO BE RELEASED WITHOUT AUTHORIZATION [facility] [address], [place] [address] Signed water and the catheter was connected to a very low flow continuous bladder irrigation. Bimanual pelvic exam showed no sign of palpable nodules in the area of the bladder. A CT scan was subsequently performed on concerns of possible perforation, which showed intraperitoneal fluid extending up and around the liver indicative of full-thickness perforation in the intraperitoneal area of the bladder. There were multiple foci of air surrounding the urinary bladder, which was extraluminal. The largest adjacent to the anterior inferior urinary bladder suspicious for a bladder perforation. Though I was not on-call, I was consulted by Dr. Arrington, who asked for assistance in evaluation and surgical definitive management. PAST MEDICAL HISTORY: Includes: 1. A horse accident two years ago sustaining significant head injury with complete amnesia to the events, intracranial hemorrhage, facial fractures, neck fractures and admission at [facility] for at least a week. 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 2. She has history of deep venous thrombosis. 3. Iron deficiency anemia. 4. Osteoporosis. 5. Recurrent urinary tract infections. 6. Neoplasm of the bladder as previously noted. 7. She has had a delmy placed in the right leg. 8. She did undergo fine-needle aspiration biopsy of thyroid nodule, which was a cyst in 2017. SOCIAL HISTORY: She lives alone in [facility]. Her daughter provides support, she lives in [place]. She does not smoke or have chemical exposure. PHYSICAL EXAMINATION: GENERAL: This is a pleasant white woman with a very flat affect. VITAL SIGNS: Height is 5 feet 6 inches, BMI is 24.6. Trachea is midline. CHEST: Shows normal respiratory excursion. She has no tachypnea. She does not look to be in distress. ABDOMEN: Scaphoid and flat. There is no significant tenderness throughout the abdomen at this time. EXTREMITIES: Show no clubbing, cyanosis, or edema. LABORATORY STUDIES: At 4 o'clock today show white count of 7.63, hematocrit 37.3, platelets 280,000. Review of her medication list notes that she is on ceftriaxone and she has been given tranexamic acid since procedure. Electronically Signed By: JOIE PIERCE MD 03/08/25 1351 PATIENT NAME: ERIC BILLS CONSULTATION DATE OF : 61 REPORT #: [id number] PHYSICIAN: JOIE PIERCE MD PCP: PHILIP CANO MD REPORT IS CONFIDENTIAL AND NOT TO BE RELEASED WITHOUT AUTHORIZATION [facility] [address], [place] [address] Signed IMAGING: I have reviewed her CT scans in detail, which show amorphous findings within the pelvic area and some apparent air. ASSESSMENT: The patient has had a bladder perforation related to thorough transurethral resection of the bladder tumor. Discussion with Dr. Arrington confirms that this was a very significant bladder tumor. We discussed that she may ultimately require a total cystectomy for management of this problem. At this point, the main issue is perforation of the bladder. It is likely intraperitoneal in addition to whatever extraperitoneal component may be present as there was a fair amount of probable irrigation fluid within the peritoneal cavity. The possibility of injury to rectosigmoid or other areas must be considered as well, though less likely. She is not systemically toxic at this time. I discussed with the patient and on the phone her daughter, Yenni Gibson and recommendation for a low midline laparotomy, exploration of the bladder, mobilization of the bladder, and repair or remedy of the perforation. Whether or not additional resection of bladder tumor concurrently will be undertaken is uncertain, however, it clearly is important that control of any leakage could be undertaken. If the bladder perforation below the pelvic peritoneum simple decompression of the bladder might be a possibility, however, given the extent of intraperitoneal fluid that is unlikely. It would be most optimal as the perforation was located at the anterior dome of the bladder as was postulated by Dr. Arrington, but that remains to be same. Special risks of operation were reviewed with the patient and subsequently with her daughter. They understand and wished to proceed. MD JOHNNA Villegas/ELVER /[id number] cc: Angie Arrington MD Electronically Signed By: JOIE PIERCE MD 03/08/25 1351 PATIENT NAME: ERIC BILLS CONSULTATION DATE OF : 61 REPORT #: [id number] PHYSICIAN: JOIE PIERCE MD PCP: PHILIP CANO MD REPORT IS CONFIDENTIAL AND NOT TO BE RELEASED WITHOUT AUTHORIZATION [address] [address] Signed Copies: ANGIE ARRINGTON MD ~ Electronically Signed By: JOIE PIERCE MD 03/08/25 1351 PATIENT NAME: NEGARERIC BORREGOCHARLIE CONSULTATION DATE OF : 61 REPORT #: [id number] PHYSICIAN: JOIE PIERCE MD PCP: PHILIP CANO MD REPORT IS CONFIDENTIAL AND NOT TO BE RELEASED WITHOUT AUTHORIZATION
--- NOTE | 2025-03-12 10:58 | PATH ---
[facility] [address], [place] [address] Signed SPECIMEN(S): A BLADDER MASS SPECIMEN(S): B PORTION OF BLADDER NECK SPECIMEN(S): C ANTERIOR PORTION OF BLADDER DOME SPECIMEN(S): D LEFT BLADDER NECK SPECIMEN SOURCE: A. BLADDER MASS B. PORTION OF BLADDER NECK C. ANTERIOR PORTION OF BLADDER DOME D. LEFT BLADDER NECK CLINICAL HISTORY: Bladder mass FINAL PATHOLOGIC DIAGNOSIS: A. 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 - Tumor invades muscularis propria. - See synoptic report. B. Portion of bladder neck, transurethral resection: - Invasive urothelial carcinoma with extensive squamous differentiation. - Tumor invades the lamina propria. - Muscularis propria not present for evaluation. - See synoptic report. C. Anterior portion of bladder dome with tumor, transurethral resection: - Invasive urothelial carcinoma with extensive squamous differentiation. - Tumor invades muscularis propria and perivesical fat. - Lymphovascular invasion identified. - Tumor present at tissue edges. - 3 lymph nodes, 2 positive for metastatic carcinoma (2/3). - See synoptic report. D. Left bladder neck tumor, transurethral resection: - Invasive urothelial carcinoma with extensive squamous differentiation. - Tumor invades at least into the muscularis propria. - Lymphovascular invasion identified. - 2 lymph nodes, 2 positive for metastatic carcinoma (2/2). - See synoptic report. URINARY BLADDER: Biopsy and Transurethral Resection of Bladder Tumor (TURBT) Applies To: A-D SPECIMEN PATIENT NAME: ERIC BILLS PATHOLOGY DATE OF : 61 REPORT #: [id number] PHYSICIAN: BRUCE CAMARILLO PCP: PHILIP CANO MD REPORT IS CONFIDENTIAL AND NOT TO BE RELEASED WITHOUT AUTHORIZATION [facility] [address], [place] [address] Signed Procedure: Transurethral resection of bladder (TURBT) TUMOR Tumor Site: Right lateral wall, Left lateral wall, Anterior wall, Dome Histologic Type: Urothelial carcinoma with squamous differentiation Percentages of Histologic Subtypes and Divergent Differentiations Present: Squamous differentiation - 90% Histologic Grade: G2, moderately differentiated Tumor Extent: Invades muscularis propria Lymphatic and / or Vascular Invasion: Present Muscularis Propria (detrusor muscle): Present, involved by tumor Tumor Comment: Tumor extends into perivesical fat and involves four of five perivesical lymph nodes (4/5). Comment(s): The pathologic stage in the submitted tissue is pT3a, pN2 COMMENT: The history of bladder mass is noted. Sections from part A through D show congested and partially necrotic bladder tissue involved by invasive carcinoma with squamous cell differentiation that extends to the detrusor muscle and involves perivesical fat. Immunohistochemical stains performed on block A11 with adequate controls show the tumor cells are positive for p40, CK5/6 and CK7, negative for p16, PAX8, CK20 and GATA3. Immunohistochemical stains performed on block C9 show normal urothelium positive for cytokeratin AE 1/3 and GATA3, and tumor positive with cytokeratin AE 1/3 and negative for GATA3. Immunohistochemical stains performed on block D1 show metastatic tumor positive for cytokeratin YUE and negative for uroplakin in one of the incidental perivesical lymph node. On the differential diagnosis for a urinary bladder tumor with squamous cell differentiation is pure squamous cell carcinoma versus urothelial carcinoma with extensive squamous differentiation. Final classification is deferred to the resection specimen, should one become available. The operative notes are reviewed with notation made of transurethral resections and perforation. While designated by the operative note as transurethral resections, the submitted tissue contains perivesical adipose tissue and lymph nodes in Part C and D. As part of [facility] quality control engineering technician program, this case was reviewed by an additional member of the pathology staff. MICROSCOPIC EXAMINATION: Histologic sections of all submitted blocks are examined by light microscopy. PATIENT NAME: ERIC BILLS PATHOLOGY DATE OF : 61 REPORT #: [id number] PHYSICIAN: BRUCE PATHOLOGY PCP: PHILIP CANO MD REPORT IS CONFIDENTIAL AND NOT TO BE RELEASED WITHOUT AUTHORIZATION [facility] [address], [place] [address] Signed These findings, together with the gross examination, support the pathologic diagnosis. GROSS DESCRIPTION: A. The specimen, labeled and designated "Yfn, bladder mass," is received in formalin and consists of a 20.1 g, 6.8 x 6.7 x 1.5 cm aggregate of leon-pink rubbery and cauterized tissue fragments. The specimen is submitted entirely in 14 cassettes labeled A1 through A14. B. The specimen, labeled and designated "Yfn, portion of bladder neck," is received in formalin and consists of an unoriented, 1.3 g, 2.2 x 1.4 x 0.9 cm portion of leon-pink soft tissue. The specimen is inked black and serially sectioned perpendicular to the long axis. No definitive lesions are grossly identified. The specimen is submitted entirely in two cassettes labeled B1 and B2. C. The specimen, labeled and designated "Yfn, anterior portion of Dome of bladder with tumor," is received in formalin and consists of a 7.0 g, 4.4 x 2.3 x 1.5 cm portion of erythematous and granular mucosa no definitive lesion is identified due to the condition of the diffusely granular/ulcerated mucosa that grossly abuts the surgical resection margins. The opposite surface is smooth, uninvolved serosa with adherent yellow, lobulated adipose tissue. The resection margin and serosa are inked black, the specimen is serially sectioned to show the lesion is 2.1 cm in greatest dimension and the cut surfaces of the lesion measure 1.5 cm in depth and are 0.1 cm in closest approach to the muscular, bladder wall and 0.1 centimeters in closest approach to the deep and surgical resection margins. entirely in 10 cassettes labeled C1 through C10. D. The specimen, labeled and designated "Yfn, left bladder neck tumor," is received in formalin and consists of a 1.7 g, 3.6 x 1.4 x 1.2 cm portion of leon-pink soft tissue. The specimen is inked black and serially sectioned perpendicular to the long axis. No definitive lesions are grossly identified specimen is submitted entirely in five cassettes labeled D1-D5. NL (under the direct supervision of a pathologist) The Gross Description was prepared using a voice recognition system. The report was reviewed for accuracy; however, sound-alike word errors, addition and/or deletions may occur. If there is any question about this report, please contact Client Services. ADDITIONAL NOTES: PATIENT NAME: ERIC BILLS PATHOLOGY DATE OF : 61 REPORT #: [id number] PHYSICIAN: BRUCE CAMARILLO PCP: PHILIP CANO MD REPORT IS CONFIDENTIAL AND NOT TO BE RELEASED WITHOUT AUTHORIZATION [address] [place], [place] [address] Signed Immunohistochemical and/or in situ hybridization studies if performed in this case included appropriate positive controls that reacted as expected. This test was developed and its performance characteristics determined by [facility]. It has not been cleared or approved by the U.S. Food and Drug Administration. The FDA has determined that such clearance or approval is not necessary. This test is used for clinical purposes. It should not be regarded as investigational or for research. [facility] is certified under the Clinical Laboratory Improvement Amendments of 1988 (CLIA) as qualified to perform high complexity clinical laboratory testing. PERFORMING LABORATORY: Technical preparation was performed by [facility], [address] [place] [address] (CLIA#: [id number]). Professional interpretation was performed by [facility], [id number] [place] [address] (CLIA#: [id number]). Diagnostician: Jelly Jeffries MD Pathologist Electronically Signed 03/12/2025 Copies: ~ PATIENT NAME: ERIC BILLS PATHOLOGY DATE OF : 61 REPORT #: [id number] PHYSICIAN: BRUCE PATHOLOGY PCP: PHILIP CANO MD REPORT IS CONFIDENTIAL AND NOT TO BE RELEASED WITHOUT AUTHORIZATION
== END 2025-03-03 12:25 | disposition home or self-care (01) ==
LOC: DS 11:25 → MS 11:25 → DS 13:00 → MS 17:15 → DS 03-03 12:25
PROVIDERS: Surgery; ATTEND Urology
PROC: 0DX Gastrointestinal System, Transfer (ICD-10-PCS; 2025-02-26)
PROC: 0T778DZ Dilation of Left Ureter with Intraluminal Device, Via Natural or Artificial Opening Endoscopic (ICD-10-PCS; 2025-02-26)
PROC: 0TBB8ZZ Excision of Bladder, Via Natural or Artificial Opening Endoscopic (ICD-10-PCS; 2025-02-26)
PROC: 0TQB0ZZ Repair Bladder, Open Approach (ICD-10-PCS; 2025-02-26)
PROC: 0TBB0ZZ Excision of Bladder, Open Approach (ICD-10-PCS; principal; 2025-02-26 13:00)
DX: C67.5 Malignant neoplasm of bladder neck (principal); C67.1 Malignant neoplasm of dome of bladder; C67.9 Malignant neoplasm of bladder, unspecified; C77.5 Secondary and unspecified malignant neoplasm of intrapelvic lymph nodes; N13.30 Unspecified hydronephrosis; Z88.8 Allergy status to other drugs, medicaments and biological substances
CPT/HCPCS: 00860; 36415; 74018; 74176; 76942; 80048; 85025; 85027; 87070; 87075; 87186; 87205; 88307; 88309; 88341; 88342; 94762; 94799; C1713; C1769; C2617; J0131; J0165; J0696; J1100; J1171; J1650; J2003; J2185; J2405; J2704; J2795; J3010; J3475; J3490; J7121